=== PATIENT | female | born 1955 | race Caucasian/White ===

== ENCOUNTER 2016-11-04 09:53 | Outpatient (CLI) | payer BC ==
[2016-11-04 11:06] LABS: ALT (SGPT) 12 U/L (0-55); AST (SGOT) 19 U/L (5-34); Alkaline Phosphatase 96 U/L (40-150); Anion Gap 12 mmol/L (10-20); BUN (Urea Nitrogen) 19 mg/dL (9.8-20.1); Calc. Creatinine Clearance 0 mL/min (70-130); Calcium 9.3 mg/dL (7.8-10.44); Carbon Dioxide 32 mmol/L (22-29); Chloride 105 mmol/L (98-107); Estimated GFR-MDRD 77; Globulin 2.6 g/dL (2.4-3.5); LDL Cholesterol, Calculated 98 mg/dL; Protein, Total 6.6 g/dL (6.0-8.3)
[2016-11-04 11:29] LABS: #Basophils 0.1 thou/uL (0.0-0.2); #Eosinphils 0.2 thou/uL (0.0-0.7); #Lymphocytes 2.1 thou/uL (1.20-3.40); #Monocytes 0.7 thou/uL (0.11-0.59); #Neutrophils 5.4 thou/uL (1.40-6.50); %Basophils 0.7 % (0.0-1.0); %Eosinophils 2.2 % (0.0-10.0); %Monocytes 8.1 % (0.0-10.0); Hematocrit 48.2 % (36.0-47.0); Mean Platelet Volume 7.9 fL (7.4-10.4); Red Blood Cell (RBC) Count 4.94 mill/uL (4.20-5.40); White Blood Cell (WBC) Count 8.4 thou/uL (4.8-10.8)
== END 2016-11-04 09:54 | disposition home or self-care (01) ==
LOC: HPCALD 09:53
PROVIDERS: ATTEND Family Medicine
DX: Z13.6 Encounter for screening for cardiovascular disorders (principal); I10 Essential (primary) hypertension
CPT/HCPCS: 36415; 80053; 80061; 84443; 85025

== ENCOUNTER 2016-11-09 07:49 | Outpatient (CLI) | payer BC ==
--- NOTE | 2016-11-09 10:08 | MRI ---
MRI BRAIN NONCONTRAST: Date: 11/09/16 INDICATION: Poor balance. No prior comparison imaging. FINDINGS: The ventricular system is normal in size. Septum pellucidum an third ventricle are midline. There is no evidence of acute territorial infarction, intracranial mass effect, or midline shift. There are no significant signal abnormalities of the brain parenchyma. The imaged skull base flow-voids are ma intained. IMPRESSION: No acute intracranial abnormalities. POS: [facility]
== END 2016-11-09 07:50 | disposition home or self-care (01) ==
LOC: BURMRI 07:49
PROVIDERS: ATTEND Family Medicine
DX: R26.89 Other abnormalities of gait and mobility (principal)
CPT/HCPCS: 70551